=== PATIENT | male | born 1985 | race Caucasian/White ===

== ENCOUNTER 2016-11-03 09:49 | Emergency (ER) | payer OTHER ==
[2016-11-03 10:07] VITALS: BP 119/73
--- NOTE | 2016-11-03 11:30 | UC ---
Nathaniel Lockett Thomas, scribed for Cait Perdomo DO on 11/03/16 at 1118 . Skin Complaint HPI - HPI Summary HPI Summary: Pt p/w 2 insect bites on the inner upper rt arm. He denies any rashes elsewhere throughout his body. He presents to [facility] concerned that he has suffered a tick bite. However, he denies seeing any ticks to the area of the spots. The spots are itchy. Aggravated and alleviated by nothing. The patient has treated the rash with nothing [employer]. He says that he works inside 12 hours a day and is not outside often - History of Current Complaint Chief Complaint: [facility] Time Seen by Provider: 11/03/16 10:48 Stated Complaint: SKIN ISSUE Hx Obtained From: Patient Onset/Duration: Lasting Days - onset two days ago, Still Present Timing: Constant Current Severity: Mild Location: Other - RUE near his elbow Character: Pruritus Aggravating Factor(s): Nothing Alleviating Factor(s): Nothing Associated Signs & Symptoms: Positive: Negative Related History: Insect Bite/Sting - Allergy/Home Medications Allergies/Adverse Reactions: Allergies Allergy/AdvReac Type Severity Reaction Status Date / Time No Known Allergies Allergy Verified 11/03/16 10:05 Home Medications: Home Medications NK [No Home Medications Reported] 11/03/16 [History Confirmed 11/03/16] Review of Systems Constitutional: Other - NEGATIVE: fever Skin: Other - Two pruritic erythematous spots to his RUE near his elbow All Other Systems Reviewed And Are Negative: Yes PMH/Surg Hx/FS Hx/Imm Hx Previously Healthy: Yes Endocrine History: Other Other Endocrine History: NEGATIVE: DM Cardiovascular History: Other Other Cardiovascular History: NEGATIVE: HTN - Surgical History Surgical History: None - Family History Known Family History: Negative: Hypertension, Diabetes - Social History Occupation: Employed Full-time Alcohol Use: Occasionally Substance Use Type: None Smoking Status (MU): Never Smoked Tobacco Physical Exam Triage Information Reviewed: Yes Appearance: Well-Appearing, No Pain Distress, Well-Nourished Vital Signs: Initial Vital Signs Temp 99 F 11/03/16 10:05 Pulse 65 11/03/16 10:05 Resp 16 11/03/16 10:05 BP 119/73 11/03/16 10:05 Pulse Ox 100 11/03/16 10:05 Vital Signs Reviewed: Yes Eyes: Positive: Conjunctiva Clear. Negative: Discharge ENT: Positive: Hearing grossly normal. Negative: Muffled/hoarse voice Neck exam: Normal Neck: Positive: Supple Respiratory: Positive: Lungs clear, Normal breath sounds, No respiratory distress, No accessory muscle use Cardiovascular: Positive: RRR, No Murmur Abdomen Description: Positive: Nontender, Soft. Negative: Distended, Guarding Bowel Sounds: Positive: Present Musculoskeletal Exam: Normal Neurological: Positive: Alert, Muscle Tone Normal Psychological Exam: Normal Psychological: Positive: Age Appropriate Behavior Skin Exam: Normal Skin: Positive: Other - Warm, Dry. He has two erythematous spots to his RUE near his elbow. 1 cm in diameter. no sign of infection. Course/Dx - Course Course Of Treatment: The pt is a 31 y/o presenting to [facility] c/o two pruritic erythematous spots to his RUE near his elbow measuring about 1cm in diameter that he first noticed two days ago. He denies any rashes elsewhere throughout his body. He presents to [facility] concerned that he has suffered a tick bite. However , he denies seeing any ticks to the area of the spots. The spots are aggravated and alleviated by nothing. The patient has treated the rash with nothing [employer]. He says that he works inside 12 hours a day. Medications reviewed this visit. Patient is diagnosed with insect bites. Patient is stable and will be discharged home. Patient is agreeable to this plan. - Differential Diagnoses - Skin Complaint Differential Diagnoses: Allergic Reaction, Tick Born Illness, Urticaria - Diagnoses Provider Diagnoses: Insect bites. Discharge - Discharge Plan Condition: Stable Disposition: HOME Patient Education Materials: Insect Bite or Sting (ED) Referrals: Guy Mccabe MD [Primary Care Provider] - The documentation as recorded by the Nathaniel ojeda Thomas accurately reflects the service I personally performed and the decisions made by me, Cait Perdomo DO.
== END 2016-11-03 11:45 | disposition home or self-care (01) ==
LOC: UCEAST 09:49
DX: S40.861A Insect bite (nonvenomous) of right upper arm, initial encounter (principal); W57.XXXA Bitten or stung by nonvenomous insect and other nonvenomous arthropods, initial encounter
CPT/HCPCS: 99211; G0463